=== PATIENT | male | born 2000 | race Caucasian/White ===

== ENCOUNTER 2024-03-31 05:05 | Emergency (ER) | payer BC ==
[2024-03-31] MEDS: Tetracaine HCl/PF 0.5% 4 ML Bottle EYEBOTH ONE (05:25)
[2024-03-31] MEDS ORDERED: Sodium Chloride 0.9% 2.5 ML Syringe FLUSH PRN (05:39)
[2024-03-31] MEDS ORDERED: Sodium Chloride 0.9% 10 ML Syringe FLUSH PRN (05:39)
[2024-03-31 05:55] LABS: BASOPHILS ABSOLUTE AUTO 0.04 K/uL (0.00-0.20); BASOPHILS PERCENT AUTO 0.6 % (0.0-1.0); EOSINOPHILS ABSOLUTE AUTO 0.31 K/uL (0.00-0.45); EOSINOPHILS PERCENT AUTO 4.4 % (0.0-6.0); HEMATOCRIT 44.4 % (42.0-52.0); HEMOGLOBIN 15.4 g/dL (14.0-18.0); IMMATURE GRAN ABSOLUTE AUTO 0.02 K/uL (0.00-0.05); IMMATURE GRAN PERCENT AUTO 0.3 % (0.0-0.4); LYMPHOCYTES ABSOLUTE AUTO 2.49 K/uL (1.00-4.80); MEAN CORPUSCULAR HEMOGLOBIN 28.7 pg (28.0-32.0); MEAN CORPUSCULAR HGB CONC 34.7 g/dL (32.0-36.0); MEAN CORPUSCULAR VOLUME 82.8 fL (83.0-99.0); MEAN PLATELET VOLUME 9.8 fL (9.4-12.4); MONOCYTES ABSOLUTE AUTO 0.69 K/uL (0.00-0.80); MONOCYTES PERCENT AUTO 9.7 % (0.0-8.0); NEUTROPHILS ABSOLUTE AUTO 3.57 K/uL (1.80-7.70); PLATELET COUNT,PLT 288 K/uL (150-400); RED BLOOD CELL COUNT 5.36 M/uL (4.52-5.90); WHITE BLOOD CELL COUNT,WBC 7.12 K/uL (3.9-11.3)
[2024-03-31] MEDS: Iopamidol 755 MG/ML 500 ML Multipack Bottle IVPUSH STA (06:12)
[2024-03-31 06:21] LABS: A/G RATIO 1.4 (0.9-1.6); ALBUMIN 4.4 g/dL (3.4-5.0); BILIRUBIN TOTAL 1.2 mg/dL (0.2-1.0); CARBON DIOXIDE,CO2 27.6 mmol/L (21.0-32.0); CREATININE 1.1 mg/dL (0.8-1.3); EST CRCL DRUG DOSING (CG) 122.47 mL/min; POTASSIUM,K 3.8 mmol/L (3.5-5.1); PROTEIN TOTAL,TP 7.6 g/dL (6.4-8.2)
== END 2024-03-31 06:45 | disposition home or self-care (01) ==
LOC: MERGE 05:05 → MW.ED 05:05
DX: H18.822 Corneal disorder due to contact lens, left eye (principal); Z75.8 Other problems related to medical facilities and other health care
CPT/HCPCS: 36415; 70481; 80053; 85025; 99284; Q9967; J3490